=== PATIENT | female | born 1970 | race Caucasian/White ===

== ENCOUNTER → 2019-12-12 | Outpatient (CLI) | payer BC ==
--- NOTE | 2019-12-12 16:01 | CT ---
EXAM DESCRIPTION: Abdoment/Pelvis w/o Contrast: Computed Tomography. CLINICAL HISTORY: 49 years Female ABDOMINAL PAIN UNSPEC COMPARISON: None. TECHNIQUE: Spiral-axial scans 2.5 x 2.5 mm intervals through the abdomen and pelvis without oral or IV contrast. Coronal and sagittal 2.0 x 2.0 mm reconstructions. Total Exam DLP: 1588 mGy-cm. This exam was performed according to our departmental CT dose-optimization program which includes automated exposure control, adjustment of the mA and/or kV according to patient size and/or use of iterative reconstruction technique; to reduce radiation dose to as low as reasonably achievable (ALARA). FINDINGS: Lung bases and pleura: Negative. Liver, stomach, spleen, and adrenal glands: 1.5 x 1.2 cm fatty circumscribed mass in the left adrenal gland with Hounsfield density -6--7, consistent with an adenoma. No adjacent fatty abnormality. Small hiatal hernia. Liver and right adrenal gland negative.. Pancreas, Gallbladder, and Ducts: Gallbladder visualized. Other organs unremarkable. Kidneys and Ureters: Small cyst anterior mid right kidney. Mesentery: Negative. Aorta: Minimal to moderate atherosclerotic calcification. Outer caliber within normal range. Small Bowel: Unremarkable. Terminal Ileum/Cecum: Normal caliber. Retrocecal appendix. No complications. Colon: Negative. Pelvic Organs: Uterus retroflexed. Ovaries visualized. Radiodense material abutting the right uterine horn and the left fallopian tube also the lateral cervix and vagina. No free fluid. Spine and Bony Pelvis: Bulging calcified disc L5-S1 into the canal with significant disc space loss and endplate reactive changes. Significant canal and foraminal narrowing. Minimal spondylosis lower thoracic spine. Mild lumbosacral levoscoliosis. Bilateral hypertrophic acetabular with over coverage of the femoral heads. Abdominal Wall/Back Soft Tissues: Small by lateral fatty inguinal hernias not containing bowel. Small inguinal lymph nodes. Postsurgical changes at the umbilicus but no definite hernia. IMPRESSION: 1. No organomegaly, no peritoneal or retroperitoneal mass. No free fluid or free air. No inflammatory changes in the mesentery. 2. Small hiatal hernia. 1.5 cm left adrenal adenoma. 3. Bulging versus herniated L5-S1 disc with disc space loss. Significant canal or neural foraminal narrowing. Correlate for radiculopathy. Electronically signed by: Cheikh Blevins MD 12/12/2019 4:00 PM CDT
== END ==
LOC: MERGE 09:52 → CT 09:52
PROVIDERS: ATTEND Nurse Practitioner Family
DX: K44.9 Diaphragmatic hernia without obstruction or gangrene (principal); D35.02 Benign neoplasm of left adrenal gland; M51.87 Other intervertebral disc disorders, lumbosacral region; G95.9 Disease of spinal cord, unspecified